=== PATIENT | female | born 1985 | race Caucasian/White ===

== ENCOUNTER 2016-12-26 18:00 | Emergency (ER) | payer BC ==
[2016-12-26 17:05] LABS: ASCORBIC ACID (UR NOT ORDER) NEG (NEG); BILIRUBIN, URINE NEGATIVE (NEG); ER URINALYSIS TAT 0 Hrs 11 Mins; KETONE, URINE NEGATIVE (NEG); LEUKOCYTE ESTERASE(NOT OR NEG (NEG); NITRITE (URINE) NEG (NEG); WBC (NOT ORDERED) (RFLEX) 1 (0-5)
[2016-12-26 17:06] LABS: BASOPHILS 0.4 %; BASOPHILS ABSOLUTE 0.04 10/3/uL (0.0-0.16); EOSINOPHILS 3.3 %; EOSINOPHILS ABSOLUTE 0.35 10/3/uL (0.0-0.53); ER CBC TAT 0 Hrs 12 Mins; HEMATOCRIT 35.6 % (36.0-48.0); HEMOGLOBIN 11.2 g/dL (12.0-16.0); IMMATURE GRANULOCYTES 0.3 %; IMMATURE GRANULOCYTES ABSOLUTE 0.03 10/3/uL (0.0-0.11); LYMPHOCYTES 13.8 %; LYMPHOCYTES ABSOLUTE 1.45 10/3/uL (0.67-4.30); MANUAL DIFF NO %; MEAN CORPUS HGB CONC 31.5 g/dL (32.0-36.0); MEAN CORPUSCULAR HEMOGLOB 24.5 pg (26.0-34.0); MEAN CORPUSCULAR VOLUME 77.9 fL (80-100); MEAN PLATELET VOLUME 10.8 fL (9.2-13.0); MONOCYTES 6.7 %; NEUTROPHILS 75.5 %; NEUTROPHILS ABSOLUTE 7.92 10/3/uL (2.02-8.40); PLATELET COUNT 418 10/3/uL (150-400); RBC DISTRIBUTION WIDTH 14.7 % (12.0-16.0); RED CELL COUNT 4.57 10/6/uL (4.0-5.6); WHITE BLOOD CELLS 10.5 10/3/uL (4.5-10.5)
[2016-12-26 17:23] LABS: A/G RATIO 0.7 (0.7-1.9); ALBUMIN 3.3 G/DL (3.5-5.0); ALKALINE PHOSPHATASE 106 U/L (45-117); BUN (BLOOD UREA NITROGEN) 10 MG/DL (6-23); CALCIUM, SERUM 9.1 MG/DL (8.5-10.4); CHLORIDE, SERUM 108 MMOL/L (96-112); CO2 (CARBON DIOXIDE) 20 MMOL/L (24-34); CREATININE 0.81 MG/DL (0.55-1.02); GFR AFRICAN AMERICAN 111 ML/MIN (>=60); GFR NON AFRICAN AMERICAN 96 ML/MIN (>=60); GLOBULIN 4.7 G/DL (2.5-4.1); GLUCOSE, SERUM 91 MG/DL (60-99); POTASSIUM, SERUM 4.2 MMOL/L (3.5-5.3); SGOT(AST) 14 U/L (5-40); SGPT(ALT) 24 U/L (5-65); SODIUM, SERUM 136 MMOL/L (135-148); TOTAL BILIRUBIN 0.3 MG/DL (0-1.2)
[~2016-12-26 18:00] MED LIST: ASAB PO; COZ50 PO; GLUCPH PO; HYDROCHLOROT25 MG PO; NEXIUM20 M1 PO; PROZAC PO; TYLENOL COLD1 TA1 OR; UROGESIC-BLU OR
[2017-03-14] MEDS ORDERED: PROTONIX PO (08:27)
[2017-03-14] MEDS ORDERED: AUG875 PO (08:28)
[2017-03-14] MEDS ORDERED: SINGULAIR1 PO (08:29)
[2017-03-14] MEDS ORDERED: TOPAMAX100 PO (08:33)
== END 2016-12-26 19:05 | disposition home or self-care (01) ==
LOC: ER 18:00
PROVIDERS: Physician Assistant
DX: R10.10 Upper abdominal pain, unspecified (principal); F17.200 Nicotine dependence, unspecified, uncomplicated; Z88.8 Allergy status to other drugs, medicaments and biological substances; Z91.09 Other allergy status, other than to drugs and biological substances; Z79.82 Long term (current) use of aspirin; Z79.899 Other long term (current) drug therapy
CPT/HCPCS: 74176; 80053; 81001; 82150; 83690; 84703; 85025; 96372; 99284; A9270-GY; J1170; J2405

== ENCOUNTER 2017-03-15 11:28 | Day surgery (SDC) | payer BC ==
[~2017-03-15] VITALS: Ht 170.2 cm; Wt 169.6 kg
--- NOTE | ~2017-03-15 | EGD ---
EGD REPORT [facility] [address] [address] NAME: ANGELA LIZAMA : [birth year] STATUS : REG [facility]#: [id number] AGE: 32 ADM/REG DATE : 03/15/17 MR#: [id number] REPORT SERV DATE: 03/15/17 DICTATED BY: DATE: REPORT STATUS : Draft TRANSCRIBED BY: [employer] DATE: 03/15/17 [facility] Patient Name: Angela Lizama Date of : 1985 Attending MD: REGAN ALY MD Procedure Date No Time: 03/15/2017 Procedure: Colonoscopy Indications: Abdominal pain, Iron deficiency anemia, Abnormal CT of the GI tract Referring MD: TANNER ACOSTA Medicines: Monitored Anesthesia Care Complications: No immediate complications. Procedure: Pre-Anesthesia Assessment: - ASA Grade Assessment: III - A patient with severe systemic disease. After I obtained informed consent, the scope was passed under direct vision. Throughout the procedure, the patient's blood pressure, pulse, and oxygen saturations were monitored continuously. The PCF H190L [id number] was introduced through the anus and advanced to the cecum, identified by appendiceal orifice and ileocecal valve. The PCF H190L [id number] was introduced through the and advanced to. The colonoscopy was performed without difficulty. The patient tolerated the procedure well. The quality of the bowel preparation was excellent. Findings: The perianal and digital rectal examinations were normal. A multi-lobulated polypoid lesion at the base of a diverticulum was found in the ascending colon. This was biopsied with a cold forceps for histology. Multiple small-mouthed diverticula were found in the sigmoid colon and in the ascending colon. No other significant abnormalities were identified in a careful examination of the remainder of the colon. There is no endoscopic evidence of bleeding, mass, polyps, stenosis, ulcerations or angioectasia in the entire colon. No additional abnormalities were found on retroflexion. Impression: - Benign polypoid lesion, likely related to diverticulum, in the ascending colon. Biopsied. - Diverticulosis in the sigmoid colon and in the ascending colon. Recommendation: - Patient has a contact number available for EGD REPORT [address] [address] NAME: ANGELA LIZAMA : [birth year] [place] [facility] [place] [id number] AGE: 32 ADM/REG DATE : 03/15/17 MR#: [id number] REPORT SERV DATE: 03/15/17 DICTATED BY: DATE: REPORT STATUS : Draft TRANSCRIBED BY: [employer] DATE: 03/15/17 emergencies. The signs and symptoms of potential delayed complications were discussed with the patient. Return to normal activities tomorrow. Written discharge instructions were provided to the patient. - High fiber diet. - Discharge patient to home. - Continue present medications. - Await pathology results. - Repeat colonoscopy in 10 years for screening purposes. Procedure Code(s): --- Professional --- 23073, Colonoscopy, flexible, proximal to splenic flexure; with biopsy, single or multiple Diagnosis Code(s): --- Professional --- D12.2, Benign neoplasm of ascending colon K57.30, Diverticulosis of large intestine without perforation or abscess without bleeding R10.9, Unspecified abdominal pain D50.9, Iron deficiency anemia, unspecified R93.3, Abnormal findings on diagnostic imaging of other parts of digestive tract CPT copyright 2013 [employer]. All rights reserved. The codes documented in this report are preliminary and upon general neurologist review may be revised to meet current compliance requirements. REGAN ALY MD 03/15/2017 1:03 PM This report has been signed electronically. Number of Addenda: 0 Note Initiated On: 03/15/2017 11:47 AM Scope Withdrawal Time 0 hours 8 minutes 15 seconds [address] [id number]
--- NOTE | ~2017-03-15 | EGD ---
EGD REPORT [facility] [address] [address] NAME: ANGELA LIZAMA : [birth year] STATUS : REG [facility]#: [id number] AGE: 32 ADM/REG DATE : 03/15/17 MR#: [id number] REPORT SERV DATE: 03/15/17 DICTATED BY: DATE: REPORT STATUS : Draft TRANSCRIBED BY: [employer] DATE: 03/15/17 [facility] Patient Name: Angela Lizama Date of : 1985 Attending MD: REGAN ALY MD Procedure Date No Time: 03/15/2017 Procedure: Upper GI endoscopy Indications: Iron deficiency anemia Referring MD: TANNER ACOSTA Medicines: Monitored Anesthesia Care Complications: No immediate complications. Procedure: Pre-Anesthesia Assessment: - ASA Grade Assessment: III - A patient with severe systemic disease. After obtaining informed consent, the endoscope was passed under direct vision. Throughout the procedure, the patient's blood pressure, pulse, and oxygen saturations were monitored continuously. The GIF H190 [id number] was introduced through the mouth, and advanced to the third part of duodenum. The upper GI endoscopy was accomplished without difficulty. The patient tolerated the procedure well. Findings: The examined esophagus was normal. The Z-line was regular and was found 40 cm from the incisors. There is no endoscopic evidence of Deutsch's esophagus, areas of erosion, hiatus hernia, ulcerations or varices in the entire esophagus. A few sessile polyps were found on the greater curvature of the stomach. Biopsies were taken with a cold forceps for histology. No other significant abnormalities were identified in a careful examination of the stomach. There is no endoscopic evidence of inflammation, mucosal abnormalities, ulceration, varices or portal hypertension gastropathy in the stomach. The examined duodenum was normal. Biopsies were taken with a cold forceps for evaluation of celiac disease. There is no endoscopic evidence of mucosal abnormalities, ulceration or angioectasia in the entire examined duodenum. The cardia and gastric fundus were normal on retroflexion. Impression: - Normal esophagus. - Z-line regular, 40 cm from the incisors. - A few gastric polyps. Biopsied. - Normal examined duodenum. Biopsied. EGD REPORT [address] [address] NAME: ANGELA LIZAMA : [birth year] STATUS : REG [facility]#: [id number] AGE: 32 ADM/REG DATE : 03/15/17 MR#: [id number] REPORT SERV DATE: 03/15/17 DICTATED BY: DATE: REPORT STATUS : Draft TRANSCRIBED BY: [employer] DATE: 03/15/17 Recommendation: - Patient has a contact number available for emergencies. The signs and symptoms of potential delayed complications were discussed with the patient. Return to normal activities tomorrow. Written discharge instructions were provided to the patient. - Regular diet. - Discharge patient to home. - Continue present medications. - Await pathology results. Procedure Code(s): --- Professional --- 53626, Esophagogastroduodenoscopy, flexible, transoral; with biopsy, single or multiple Diagnosis Code(s): --- Professional --- K31.7, Polyp of stomach and duodenum D50.9, Iron deficiency anemia, unspecified CPT copyright 2013 [employer]. All rights reserved. The codes documented in this report are preliminary and upon lead informatica developer review may be revised to meet current compliance requirements. REGAN ALY MD 03/15/2017 12:49 PM This report has been signed electronically. Number of Addenda: 0 Note Initiated On: 03/15/2017 12:38 PM Scope Withdrawal Time 0 hours 0 minutes 0 seconds [address] [id number]
[~2017-03-15 11:28] MED LIST changes: +AUG875 PO; +PROTONIX PO; +SINGULAIR1 PO; +TOPAMAX100 PO
== END 2017-03-15 23:59 | disposition home or self-care (01) ==
LOC: DMU 11:28
PROVIDERS: Internal Medicine Gastroenterology
PROC: 0DBK8ZX Excision of Ascending Colon, Via Natural or Artificial Opening Endoscopic, Diagnostic (ICD-10-PCS; 2017-03-15)
PROC: 0DB98ZX Excision of Duodenum, Via Natural or Artificial Opening Endoscopic, Diagnostic (ICD-10-PCS; principal; 2017-03-15 12:30)
PROC: 0DB68ZX Excision of Stomach, Via Natural or Artificial Opening Endoscopic, Diagnostic (ICD-10-PCS; 2017-03-15 12:30)
DX: K31.7 Polyp of stomach and duodenum (principal); K57.30 Diverticulosis of large intestine without perforation or abscess without bleeding; K22.8 Other specified diseases of esophagus; K21.9 Gastro-esophageal reflux disease without esophagitis; D50.9 Iron deficiency anemia, unspecified; I10 Essential (primary) hypertension; F41.9 Anxiety disorder, unspecified; E11.9 Type 2 diabetes mellitus without complications; G43.909 Migraine, unspecified, not intractable, without status migrainosus; F17.210 Nicotine dependence, cigarettes, uncomplicated; Z91.041 Radiographic dye allergy status; Z86.73 Personal history of transient ischemic attack (TIA), and cerebral infarction without residual deficits; Z88.8 Allergy status to other drugs, medicaments and biological substances; Z79.82 Long term (current) use of aspirin; Z79.899 Other long term (current) drug therapy; Z90.49 Acquired absence of other specified parts of digestive tract; Z98.890 Other specified postprocedural states
CPT/HCPCS: 82962; 84703; 88305